=== PATIENT | female | born 1945 | race Caucasian/White ===

== ENCOUNTER 2023-08-23 19:37 | Inpatient (IN) | payer OTHER ==
[~2023-08-23] VITALS: Ht 160 cm; Wt 119.7 kg
[2023-08-23 19:42] VITALS: BP_SYST 120; PULSE 84; RESP 16; TEMP 98.5; O2SAT 100
[2023-08-23] MEDS: NACL 0.9% 1,000 ML IV ONE (20:40)
[2023-08-23 20:56] LABS: BLOOD GAS PH 7.526 (7.350-7.450)
[2023-08-23 20:57] LABS: ABG O2 SAT% ESTIMATE 92.8 % (94.0-100.0); BLOOD GAS BASE EXCESS 3.1 mmol/L (-3.0-3.0)
[2023-08-23 21:09] LABS: ANION GAP 8 (5-15); CALCIUM 9.4 mg/dL (8.4-11.0); CARBON DIOXIDE 28 mmol/L (23-29); CHLORIDE 93 mmol/L (98-107); CREATININE 0.81 mg/dL (0.55-1.30); GLUCOSE 309 mg/dL (74-106); HEMATOCRIT 41.8 % (36-48); HEMOGLOBIN 14.7 g/dL (12.0-16.0); MEAN CORPUSCULAR HEMOGLOBIN 29 pg (27-31); MEAN CORPUSCULAR HGB CONC 35 % (32-36); MEAN CORPUSCULAR VOLUME 82 fL (79.0-98.0); PLATELET COUNT (AUTO) 212 K/uL (130-430); POTASSIUM 4.2 mmol/L (3.5-5.1); RED BLOOD CELL COUNT(AUTO) 5.13 MIL/uL (4.2-6.2); SODIUM SERUM 129 mmol/L (136-145); UREA NITROGEN, BLOOD 18 mg/dL (8-21); WHITE BLOOD COUNT (AUTO) 16.9 K/uL (4.8-10.8)
[2023-08-23 21:16] LABS: ASPARTATE AMINOTRANSFERASE 17 U/L (10-37); BILIRUBIN,DIRECT 0.2 mg/dL (0.0-0.3); TOTAL BILIRUBIN 0.9 mg/dL (0.0-1.0); TOTAL PROTEIN, SERUM 7.9 g/dL (6.4-8.3)
[2023-08-23 21:26] LABS: ALANINE AMINOTRANSFERASE 17 U/L (12-78)
[2023-08-23 21:29] LABS: ALBUMIN 3.1 g/dL (3.4-4.8)
[2023-08-23 21:35] LABS: INR 1.1 (0.8-1.2); PROTHROMBIN TIME 11.1 SECS (9.5-12.5)
[2023-08-23 21:59] LABS: INFLUENZA TYPE A Negative (NEGATIVE); INFLUENZA TYPE B NEGATIVE (NEGATIVE)
[2023-08-23 22:08] LABS: BILIRUBIN,URINE NEGATIVE (NEGATIVE); BLOOD, URINE 3+ (NEGATIVE); CLARITY/URINE CLOUDY (CLEAR); COLOR,URINE YELLOW (YELLOW); GLUCOSE,URINE TRACE (NEGATIVE); KETONES,URINE NEGATIVE (NEGATIVE); LEUKOCYTE ESTERASE ,URINE 1+ (NEGATIVE); NITRITE, URINE POSITIVE (NEGATIVE); PH,URINE 5.5 (5.0-8.0); PROTEIN URINE 2+ (NEGATIVE)
[2023-08-23 22:08] LABS: BAND % (MANUAL) 3 % (0-6); BASOPHILS % (MANUAL) 0 % (0-2); EOSINOPHILS % (MANUAL) 0 % (0-7); LYMPHOCYTES % (MANUAL) 3 % (20-46); MONOCYTES % (MANUAL) 13 % (0-11); PLATELET ESTIMATE ADEQUATE (ADEQUATE)
[2023-08-23 22:37] LABS: BACTERIA,URINE FEW /HPF (None Seen)
[2023-08-23] MEDS ORDERED: cefTRIAXone 2 GM VIAL ONE (23:54)
[2023-08-24] VITALS (8 sets, daily range): BP systolic 130–140; PULSE 70–85; RESP 16–18; TEMP 97.7–99.7; O2SAT 97–100
[2023-08-24] MEDS: NACL 0.9% 1,000 ML IV ONE (01:10)
[2023-08-24] MEDS ORDERED: SPIRONOLACTONE 25 MG TABLET (ALDACTONE) PO ONE (14:00)
[2023-08-24] MEDS ORDERED: ECONAZOLE NITRATE 1% TP PRN (14:15)
[2023-08-24] MEDS ORDERED: ACETAMINOPHEN 650 MG/20.3 ML UDC PO PRN (14:15)
[2023-08-24] MEDS: SPIRONOLACTONE 25 MG TABLET (ALDACTONE) PO ONE (14:45)
[2023-08-24] MEDS ORDERED: SPIR25TA PO (15:49)
[2023-08-24] MEDS ORDERED: COR25 PO (15:49)
[2023-08-24] MEDS ORDERED: NPH,100I SQ (15:49)
[2023-08-24] MEDS ORDERED: DULO30CA52 PO (15:49)
[2023-08-24] MEDS ORDERED: FURO80TA86 PO (15:49)
[2023-08-24] MEDS ORDERED: ROSU10TA2 PO (15:49)
[2023-08-24] MEDS ORDERED: LOSA-415 PO (15:49)
[2023-08-24] MEDS: NACL 0.9% 1,000 ML IV SCH (18:31)
[2023-08-24] MEDS: INSULIN REGULAR, HUMAN 100 UNITS/ML, 3 ML VIAL (humuLIN R) SUBCUT PRN (18:54)
[2023-08-24] MEDS: SACUBITRIL/VALSARTAN 24 MG-26 MG 1 TABLET PO SCH (21:00)
[2023-08-24] MEDS: CARVEDILOL 25 MG TABLET (COREG) PO SCH (21:06)
[2023-08-24] MEDS: DULoxetine HCL 30 MG CAPSULE.DR (CYMBALTA) PO SCH (21:06)
[2023-08-25 00:18] VITALS: BP_SYST 135; PULSE 69; RESP 18; TEMP 97.6; O2SAT 97
[2023-08-25 06:05] LABS: BASOPHILS % (AUTO) 0.3 % (0.0-2.0); EOSINOPHILS % (AUTO) 0.4 % (0.0-4.0); HEMATOCRIT 35.6 % (36-48); HEMOGLOBIN 12.7 g/dL (12.0-16.0); LYMPHOCYTES # (AUTO) 1.1 K/uL (1.0-5.5); LYMPHOCYTES % (AUTO) 10.6 % (20.5-51.5); MEAN CORPUSCULAR HEMOGLOBIN 29 pg (27-31); MEAN CORPUSCULAR HGB CONC 36 % (32-36); MEAN CORPUSCULAR VOLUME 81 fL (79.0-98.0); MONOCYTES # (AUTO) 1.9 K/uL (0.0-1.0); MONOCYTES % (AUTO) 18.2 % (1.7-9.3); NEUTROPHILS # (AUTO) 7.2 K/uL (1.8-7.7); NEUTROPHILS % (AUTO) 70.5 % (40.0-70.0); PLATELET COUNT (AUTO) 220 K/uL (130-430); RED BLOOD CELL COUNT(AUTO) 4.38 MIL/uL (4.2-6.2); RED CELL DISTRIBUTION WIDTH 13.7 % (9.0-15.0); WHITE BLOOD COUNT (AUTO) 10.3 K/uL (4.8-10.8)
[2023-08-25 06:14] LABS: ANION GAP 7 (5-15); CARBON DIOXIDE 27 mmol/L (23-29); CHLORIDE 98 mmol/L (98-107); CREATININE 0.71 mg/dL (0.55-1.30); GLUCOSE 238 mg/dL (74-106); PHOSPHORUS 2.6 mg/dL (2.7-4.5); POTASSIUM 3.9 mmol/L (3.5-5.1); SODIUM SERUM 132 mmol/L (136-145); UREA NITROGEN, BLOOD 13 mg/dL (8-21)
[2023-08-25 08:00] VITALS: BP_SYST 117; PULSE 78; RESP 16; TEMP 98.2; O2SAT 97
[2023-08-25] MEDS ORDERED: SPIRONOLACTONE 25 MG TABLET (ALDACTONE) PO SCH (09:00)
[2023-08-25] MEDS ORDERED: FUROSEMIDE 80 MG TABLET PO SCH (09:00)
[2023-08-25 12:00] VITALS: BP_SYST 115; PULSE 77; RESP 16; TEMP 97.8; O2SAT 94
[2023-08-25 16:00] VITALS: BP_SYST 123; PULSE 78; RESP 20; TEMP 97.5; O2SAT 97
[2023-08-25] MEDS: NA PHOS 30 MM in NS 250 ML IV ONE (18:20)
[2023-08-25 20:00] VITALS: BP_SYST 106; PULSE 67; RESP 18; TEMP 97.6; O2SAT 97
[2023-08-26] VITALS: BP_SYST 110; PULSE 70; RESP 18; TEMP 97.5; O2SAT 97
[2023-08-26 07:41] LABS: ANION GAP 6 (5-15); CALCIUM 8.8 mg/dL (8.4-11.0); CARBON DIOXIDE 27 mmol/L (23-29); CHLORIDE 102 mmol/L (98-107); CREATININE 0.51 mg/dL (0.55-1.30); GLUCOSE 246 mg/dL (74-106); PHOSPHORUS 3.5 mg/dL (2.7-4.5); POTASSIUM 3.9 mmol/L (3.5-5.1); SODIUM SERUM 135 mmol/L (136-145); UREA NITROGEN, BLOOD 11 mg/dL (8-21)
[2023-08-26 07:55] LABS: BASOPHILS # (AUTO) 0.1 K/uL (0.0-0.2); BASOPHILS % (AUTO) 0.9 % (0.0-2.0); EOSINOPHILS # (AUTO) 0.1 K/uL (0.0-0.4); EOSINOPHILS % (AUTO) 1.9 % (0.0-4.0); HEMATOCRIT 33.8 % (36-48); LYMPHOCYTES # (AUTO) 1.3 K/uL (1.0-5.5); LYMPHOCYTES % (AUTO) 16.1 % (20.5-51.5); MEAN CORPUSCULAR HEMOGLOBIN 29 pg (27-31); MEAN CORPUSCULAR HGB CONC 36 % (32-36); MEAN CORPUSCULAR VOLUME 82 fL (79.0-98.0); MONOCYTES # (AUTO) 1.5 K/uL (0.0-1.0); MONOCYTES % (AUTO) 18.3 % (1.7-9.3); NEUTROPHILS % (AUTO) 62.8 % (40.0-70.0); PLATELET COUNT (AUTO) 193 K/uL (130-430); RED BLOOD CELL COUNT(AUTO) 4.13 MIL/uL (4.2-6.2)
[2023-08-26 08:00] VITALS: BP_SYST 125; PULSE 73; RESP 16; TEMP 97.8; O2SAT 98
[2023-08-26 11:05] VITALS: BP_SYST 108; PULSE 68; RESP 16; TEMP 97.6; O2SAT 95
[2023-08-26 15:40] VITALS: BP_SYST 132; PULSE 70; RESP 16; TEMP 96.4; O2SAT 95
[2023-08-26 20:00] VITALS: BP_SYST 124; PULSE 86; RESP 18; TEMP 97.6; O2SAT 96
[2023-08-27 01:05] VITALS: BP_SYST 126; PULSE 69; RESP 17; TEMP 96.8; O2SAT 98
[2023-08-27 08:00] VITALS: O2SAT 98
[2023-08-27 08:46] VITALS: BP_SYST 129; PULSE 74; RESP 18; TEMP 97.8; O2SAT 98
[2023-08-27 10:00] LABS: ANION GAP 8 (5-15); CALCIUM 9.5 mg/dL (8.4-11.0); CARBON DIOXIDE 27 mmol/L (23-29); CHLORIDE 101 mmol/L (98-107); CREATININE 0.77 mg/dL (0.55-1.30); GLUCOSE 321 mg/dL (74-106); POTASSIUM 3.8 mmol/L (3.5-5.1); SODIUM SERUM 136 mmol/L (136-145); UREA NITROGEN, BLOOD 8 mg/dL (8-21)
[2023-08-27 12:00] VITALS: BP_SYST 152; PULSE 68; RESP 21; TEMP 98.6; O2SAT 94
[2023-08-27 17:30] VITALS: BP_SYST 102; PULSE 74; RESP 20; TEMP 97.7; O2SAT 94
[2023-08-27 20:00] VITALS: BP_SYST 132; PULSE 75; RESP 20; TEMP 97.3; O2SAT 98
[2023-08-27] MEDS: INSULIN REGULAR, HUMAN 10 UNITS/0.1 ML, 3 ML VIAL SUBCUT ONE (23:18)
[2023-08-28] VITALS: BP_SYST 115; PULSE 58; RESP 18; TEMP 96.5; O2SAT 98
[2023-08-28 04:00] VITALS: BP_SYST 123; PULSE 56; RESP 18; TEMP 97.3; O2SAT 98
[2023-08-28 08:00] VITALS: BP_SYST 119; PULSE 56; RESP 18; TEMP 97; O2SAT 98; O2SAT 99
[2023-08-28 11:27] VITALS: BP_SYST 132; PULSE 65; RESP 18; TEMP 98; O2SAT 97
[2023-08-28] MEDS ORDERED: LEVO-62 PO ×2 (11:33→11:39)
[2023-08-28 16:46] VITALS: BP_SYST 137; PULSE 72; RESP 18; TEMP 98; O2SAT 96
[2023-08-28 18:41] VITALS: BP_SYST 137; PULSE 72; RESP 18; TEMP 98; O2SAT 98
== END 2023-08-28 19:30 | DRG 871 ==
LOC: SED 19:37 → STU 23:06
PROVIDERS: ADMIT Internal Medicine; ATTEND Internal Medicine
DX: A41.9 Sepsis, unspecified organism (principal); G93.41 Metabolic encephalopathy; J18.9 Pneumonia, unspecified organism; E87.1 Hypo-osmolality and hyponatremia; N39.0 Urinary tract infection, site not specified; Z68.42 Body mass index [BMI] 45.0-49.9, adult; E86.0 Dehydration; E11.42 Type 2 diabetes mellitus with diabetic polyneuropathy; E11.22 Type 2 diabetes mellitus with diabetic chronic kidney disease; E11.65 Type 2 diabetes mellitus with hyperglycemia; E66.01 Morbid (severe) obesity due to excess calories; Z20.822 Contact with and (suspected) exposure to COVID-19; B96.20 Unspecified Escherichia coli [E. coli] as the cause of diseases classified elsewhere; E86.1 Hypovolemia; I12.9 Hypertensive chronic kidney disease with stage 1 through stage 4 chronic kidney disease, or unspecified chronic kidney disease; N18.9 Chronic kidney disease, unspecified; R65.20 Severe sepsis without septic shock; Z88.8 Allergy status to other drugs, medicaments and biological substances
CPT/HCPCS: 36415; 36600; 70450-TC; 71045; 80048; 80076; 81000; 81001; 81015; 82533; 82803; 82948; 83037; 83605; 83735; 83930; 83935; 84100; 84302; 84443; 84484; 84550; 85007; 85025; 85027; 85610; 85730; 87040; 87086; 87186; 93005; 95816; 96365; 97110-GP; 97116-GP; 97530-GP; 99285; G0378; J0696; J1815; J1956; J7050